=== PATIENT | female | born 1940 | race Hispanic/Latino ===

== ENCOUNTER 2019-06-19 05:51 | Observation (INO) | payer OTHER ==
[2019-06-14 11:19] VITALS: BP 192/82
[2019-06-14 11:33] VITALS: BP 152/76
[2019-06-14 11:40] LABS: APPEARANCE,URINE Clear (CLEAR); BILIRUBIN,URINE Negative (NEGATIVE); COLOR,URINE Yellow (YELLOW); GLUCOSE, URINE (UA) Negative (NEGATIVE); KETONES,URINE Negative (NEGATIVE); LEUKOCYTE ESTERASE ,URINE Negative (NEGATIVE); NITRATE,URINE Negative (NEGATIVE); OCCULT BLOOD,URINE Trace (NEGATIVE); PH,URINE 6.5 (5.0-8.0); PROTEIN,URINE Negative (NEGATIVE); UROBILINOGEN,URINE 0.2 mg/dL (0.2-1.0)
[2019-06-14 11:40] LABS: BASOPHILS % (AUTO) 1.4 % (0.0-5.0); EOSINOPHILS % (AUTO) 4.1 % (0.0-8.0); HEMATOCRIT 37.8 % (36-48); LYMPHOCYTES % (AUTO) 20.1 % (21.0-51.0); MEAN CORPUSCULAR HEMOGLOBIN 32.2 pg (27.0-33.0); MEAN CORPUSCULAR HGB CONC 33.3 g/dL (32.0-36.0); MEAN CORPUSCULAR VOLUME 96.7 fL (79-99); MONOCYTES % (AUTO) 6.5 % (3.0-13.0); NEUTROPHILS % (AUTO) 67.7 % (40.0-77.0); PLATELET COUNT (AUTO) 265 K/uL (130-400); RED BLOOD CELL COUNT(AUTO) 3.91 MIL/uL (4.00-5.50); RED CELL DISTRIBUTION WIDTH 11.9 % (11.0-15.5); WHITE BLOOD COUNT (AUTO) 5.7 K/uL (4.8-10.8)
[2019-06-14 11:56] LABS: CREATININE 0.7 mg/dL (0.5-1.5); POTASSIUM 4.3 mmol/L (3.5-5.1)
[2019-06-14 12:00] LABS: INR 0.95 (0.85-1.15); PARTIAL THROMBOPLASTIN TIME 29.2 SEC (26.3-35.5)
[2019-06-14 12:08] LABS: BACTERIA,URINE None Seen /HPF (None Seen); RBC,URINE 0-1 /HPF (0-1); SQUAMOUS EPITHELIAL CELL,UR None Seen /HPF (0-2); WBC,URINE None Seen /HPF (0-1)
--- NOTE | 2019-06-18 15:43 | NUR ---
REPORTED ABNORMAL LABS TO DR. LUNA NA 129 AND OTHER ABNORMALS . NO NEW ORDERS AT THIS TIME. OK TO PROCEED.
[~2019-06-19] VITALS: Ht 143.5 cm; Wt 67.6 kg
[2019-06-19] VITALS (13 sets, daily range): BP systolic 98–188; BP diastolic 47–93
[~2019-06-19 05:51] MED LIST: ACET-2247 PO; ALEN70TA10 PO; ANASTROZOLE PO; BACL10TA PO; CALC-1205 PO; CEFU250T87 PO; FLUT15.845 NS; FLUT1AER IH; FURO20TA4 PO; GABA-531 PO; HYDR-4060 PO; LATA7.5D OP; LEVO5TAB13 PO; LEVOTHROXIN PO; LOSA50TA64 PO; MECL-183 PO; MONT10TA26 PO; MU-V1TAB28 PO; OMEP40CA13 PO; SODIUM CHLORIDE 0.9% 500ML 500 ML IV SCH
[2019-06-19] MEDS ORDERED: SODIUM CHLORIDE 0.9% 1000ML 1,000 ML IV ONE (07:30)
[2019-06-19] MEDS ORDERED: IOHEXOL 350 MG/ML 100ML INFUS..BTL IV ONE (07:36)
[2019-06-19] MEDS ORDERED: HEPARIN SODIUM 1000UNIT/ML 10ML VIAL ONE (07:36)
[2019-06-19] MEDS ORDERED: NITROGLYCERIN 2 MG/VIAL VIAL IV ONE (07:36)
[2019-06-19] MEDS ORDERED: IOHEXOL-350 50ML VIAL IV ONE (07:36)
[2019-06-19] MEDS ORDERED: LIDOCAINE HCL 2% 20ML ONE (07:37)
[2019-06-19] MEDS ORDERED: MIDAZOLAM HCL 1 MG/ML 2ML VIAL ONE (09:49)
[2019-06-19] MEDS ORDERED: FENTANYL CITRATE PF 50 MCG/1 ML 2ML VIAL ONE (09:49)
[2019-06-19] MEDS ORDERED: ATROPINE SULFATE 0.1 MG/ML 10 ML SYG IVP ONE (10:14)
--- NOTE | 2019-06-19 11:25 | NUR ---
PROCEDURE PT HERE FROM PROCEDURE. SITE TO RIGHT GROIN SOFT TO TOUCH. NO BLEEDING, SWELLING NOTED TO SITE. DENIES ANY PAIN, SOB. INSTRUCTED PT AND GRAND-DAUGHTER TO NOT MOVE RIGHT LEG. BOTH VERBALIZED UNDERSTANDING.
--- NOTE | 2019-06-19 12:05 | NUR ---
REPORT REPORT GIVEN TO Jaelyn VALDOVINOS RN. PT LYING IN BED. NO BLEEDING, OOZING NOTED TO SITE.
[2019-06-19] MEDS ORDERED: ACETAMINOPHEN 325 MG TAB PO PRN (13:30)
--- NOTE | 2019-06-19 14:51 | NUR ---
report given to paloma wilcox no concerns voiced
--- NOTE | 2019-06-19 15:30 | NUR ---
AMBULATION PT AMBULATING TO RESTROOM WITHOUT DIFFICULTY. DENIES ANY CHEST PAIN, SOB. SITE TO RIGHT GROIN SOFT TO TOUCH. HAD BM.
--- NOTE | 2019-06-19 15:40 | NUR ---
REPORT REPORT GIVEN TO CATE LAKHANI. PT DOING WELL.
--- NOTE | 2019-06-19 15:43 | NUR ---
XRAY PT TAKEN TO RADIOLOGY VIA WHEELCHAIR.
--- NOTE | 2019-06-19 16:00 | NUR ---
TRANSFERRED PT TRANSFERRED TO ROOM 221 VIA WHEELCHAIR. SITE SOFT TO TOUCH. NO BLEEDING, OOZING NOTED TO SITE.
--- NOTE | 2019-06-19 16:05 | NUR ---
DR. Cara GORDON, AT NURSE'S STATION, MADE AWARE BY Janina HANNAH, HS, PT. ON HER WAY FROM DAYPT. TO ROOM 221.
--- NOTE | 2019-06-19 16:20 | NUR ---
RECEIVED FROM DAYPT. VIA BED ACCOMPANIED BY STAFF. AAOX3, RESP.'S EVEN AND UNLABORED. CALL LIGHT WITHIN REACH. BED LOW, SIDE RAILS UP X3. FAMILY MEMBERS AT BEDSIDE.
--- NOTE | 2019-06-19 22:00 | NUR ---
MAHIN RICH NOTIFIED OF PT REQUEST TO TAKE HOME MEDS. STATED WOULD RESUME FOR THE AM. 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 DOSE OF 1250MG.
[2019-06-19 23:12] LABS: HEMATOCRIT 34.4 % (36-48); MEAN CORPUSCULAR HEMOGLOBIN 31.9 pg (27.0-33.0); MEAN CORPUSCULAR VOLUME 93.7 fL (79-99); PLATELET COUNT (AUTO) 235 K/uL (130-400); RED BLOOD CELL COUNT(AUTO) 3.67 MIL/uL (4.00-5.50); RED CELL DISTRIBUTION WIDTH 11.9 % (11.0-15.5); WHITE BLOOD COUNT (AUTO) 6.6 K/uL (4.8-10.8)
[2019-06-19 23:20] LABS: CREATININE 0.7 mg/dL (0.5-1.5); POTASSIUM 3.4 mmol/L (3.5-5.1)
[2019-06-19 23:23] LABS: MAGNESIUM 1.9 mg/dL (1.80-2.40)
[2019-06-19] MEDS ORDERED: ONDANSETRON HCL 4 MG/2 ML VIAL IVP PRN (23:45)
[2019-06-19] MEDS ORDERED: LACTULOSE 20 GM/30 ML UDCUP PO PRN (23:45)
[2019-06-20 00:05] VITALS: BP 118/63
[2019-06-20 04:08] VITALS: BP 122/54
[2019-06-20 05:35] LABS: HEMATOCRIT 35.2 % (36-48); MEAN CORPUSCULAR HEMOGLOBIN 32.2 pg (27.0-33.0); MEAN CORPUSCULAR HGB CONC 34.1 g/dL (32.0-36.0); MEAN CORPUSCULAR VOLUME 94.4 fL (79-99); PLATELET COUNT (AUTO) 240 K/uL (130-400); RED BLOOD CELL COUNT(AUTO) 3.73 MIL/uL (4.00-5.50); RED CELL DISTRIBUTION WIDTH 12.1 % (11.0-15.5); WHITE BLOOD COUNT (AUTO) 5.7 K/uL (4.8-10.8)
[2019-06-20 05:54] LABS: CREATININE 0.7 mg/dL (0.5-1.5); MAGNESIUM 2.1 mg/dL (1.80-2.40); PHOSPHORUS 3.9 mg/dL (2.5-4.9); POTASSIUM 3.3 mmol/L (3.5-5.1)
[2019-06-20] MEDS ORDERED: PHARMACY COMMUNICATION MISC SCH (06:00)
[2019-06-20 06:07] LABS: HEMOGLOBIN A1C 5.5 % (4.0-6.0)
[2019-06-20] MEDS ORDERED: LEVOTHYROXINE 112 MCG TABLET PO SCH (06:30)
--- NOTE | 2019-06-20 07:45 | NUR ---
ASSESSMENT PT IS AAOX3 DENIES CP DENIES SOB DENIES NV NO COMPLAINTS, SITTING UPRIGHT IN CHAIR. BREAHTING PATTERN IS EVEN AND UNALABORED, TELE PACK IS ON PATIENT. CALL LIGHT WITHIN REACH.
[2019-06-20 07:48] VITALS: BP 123/62
--- NOTE | 2019-06-20 08:15 | NUR ---
MEDICATION ADMINISTRATION / NO SCANNER VERIFIED PATIENTS FULL NAME, , ROOM NUMBER, ALLERGIES, AND ALL MEDS ADMINISTERED WITH PATIENT AND [employer] EMAR, ADMINISTER BUTTON USED TO CHART MEDS. NO SCANNER IS AVAILABLE ON MY COMPUTER AND NO OTHER COMPUTER WITH SCANNER IS AVAILABLE FOR ME TO USE, SEARCED ALL FLOORS. IT STAFF [employer] CALLED AT 8 AM TO REPORT THIS. CHAVO STATES THEY WILL WORK ON FINDING ME A VIABLE SCANNER/COMPUTER "SOON".
[2019-06-20] MEDS ORDERED: GABAPENTIN 300 MG CAPSULE PO SCH (09:00)
[2019-06-20] MEDS ORDERED: CETIRIZINE HCL 5 MG TABLET PO SCH (09:00)
[2019-06-20] MEDS ORDERED: MULTIVITAMIN WITH MINERALS TABLET PO SCH (09:00)
[2019-06-20] MEDS ORDERED: LOSARTAN 50 MG TABLET PO SCH (09:00)
[2019-06-20] MEDS ORDERED: FLUTICASONE PROPIONATE 50MCG/SPRAY 16 GM BOTTLE EN SCH (09:00)
[2019-06-20] MEDS ORDERED: PANTOPRAZOLE SODIUM 40 MG TABLET.DR PO SCH (09:00)
[2019-06-20] MEDS ORDERED: NON-FORMULARY MEDICATION 1 EACH (Alendronate Sodium 70 MG) PO SCH (09:00)
[2019-06-20] MEDS ORDERED: ANASTROZOLE 1 MG PO SCH (09:00)
[2019-06-20] MEDS ORDERED: CALCIUM 600 + VITAMIN D 400 TABLET PO SCH (09:00)
[2019-06-20] MEDS ORDERED: MONTELUKAST SODIUM 10 MG TAB PO SCH (09:00)
[2019-06-20] MEDS ORDERED: FUROSEMIDE 20 MG TABLET PO SCH (09:00)
[2019-06-20] MEDS ORDERED: BACLOFEN 10 MG TABLET PO SCH (09:00)
[2019-06-20] MEDS ORDERED: MECLIZINE HCL 12.5 MG TABLET PO SCH (09:00)
[2019-06-20 11:45] VITALS: BP 113/62
[2019-06-20] MEDS ORDERED: ALBUTEROL SULFATE 0.083% 2.5 MG/3 ML INH IH SCH (12:00)
[2019-06-20] MEDS ORDERED: POTASSIUM CHLORIDE 20 MEQ ERTAB PO SCH (12:00)
--- NOTE | 2019-06-20 12:39 | NUR ---
[id number] patient signed ELY Letter, I faxed ELY Letter to [id number] and placed in chart under consent tab.
--- NOTE | 2019-06-20 14:00 | NUR ---
MD ROUNDS DR GORDON ROUNDED, OK TO DC PT HOME.
--- NOTE | 2019-06-20 14:21 | NUR ---
DISCHARGE PATIENT AND FAMILY VERBALIZE DC INSTRUCTIONS UNDERSTANDING AGREE TO TAKE MEDS ORDERED AND AGREE TO FOLLOW UP WITH DR IVORY OUTPT. ALL QUESTIONS ANSWERED, PIV REMOVED CATH TIP INTACT TELE PACK REMOVED. ALL BELONGINGS TAKEN.
[2019-06-20] MEDS ORDERED: BUDESONIDE 0.5 MG/2 ML INH IH SCH (18:00)
[2019-06-20] MEDS ORDERED: LATANOPROST 2.5 ML DROPS OU SCH (21:00)
== END 2019-06-20 15:00 | disposition home or self-care (01) ==
LOC: DAH 05:51 → DAHIP 05:52 → DAH 05:52 → 2DH 16:19
PROVIDERS: ADMIT Internal Medicine; ATTEND Internal Medicine
DX: I35.0 Nonrheumatic aortic (valve) stenosis (principal); I10 Essential (primary) hypertension; E03.9 Hypothyroidism, unspecified; I47.2 Ventricular tachycardia; E66.9 Obesity, unspecified; J45.909 Unspecified asthma, uncomplicated; Z68.35 Body mass index [BMI] 35.0-35.9, adult; Z85.3 Personal history of malignant neoplasm of breast; Z90.13 Acquired absence of bilateral breasts and nipples; Z88.1 Allergy status to other antibiotic agents; Z88.8 Allergy status to other drugs, medicaments and biological substances; Z79.899 Other long term (current) drug therapy
CPT/HCPCS: 36415 ×3; 71045; 71046; 80048 ×3; 80061; 81001; 83036; 83735 ×2; 84100 ×2; 84443; 85025; 85027 ×2; 85610; 85730; 93005; 93456; 94640; 94664; A4215 ×2; A4216; A4221; A4222; A4223 ×3; A4606; A4663; C1760; C1769; C1894 ×3; G0378 ×20; J0461; J1644; J2250; J3010; J3490 ×2; J7030; Q9965; Q9967 ×2; 93460; 99156; 99157

== ENCOUNTER 2019-07-27 10:00 | Inpatient (IN) | payer OTHER ==
[~2019-07-27] VITALS: Ht 152.4 cm; Wt 71.2 kg
[~2019-07-27 10:00] MED LIST changes: -ALEN70TA10 PO; +ALEN70TA69 PO; -CEFU250T87 PO; -SODIUM CHLORIDE 0.9% 500ML 500 ML IV SCH
[2019-07-31 13:00] VITALS: BP 193/95
[2019-07-31 13:13] LABS: BASOPHILS % (AUTO) 1.5 % (0.0-5.0); EOSINOPHILS % (AUTO) 6.4 % (0.0-8.0); HEMATOCRIT 37.9 % (36-48); LYMPHOCYTES % (AUTO) 23.7 % (21.0-51.0); MEAN CORPUSCULAR HEMOGLOBIN 32.6 pg (27.0-33.0); MEAN CORPUSCULAR HGB CONC 33.2 g/dL (32.0-36.0); MEAN CORPUSCULAR VOLUME 98.2 fL (79-99); MONOCYTES % (AUTO) 6.6 % (3.0-13.0); NEUTROPHILS % (AUTO) 61.6 % (40.0-77.0); PLATELET COUNT (AUTO) 251 K/uL (130-400); RED BLOOD CELL COUNT(AUTO) 3.86 MIL/uL (4.00-5.50); RED CELL DISTRIBUTION WIDTH 12.5 % (11.0-15.5); WHITE BLOOD COUNT (AUTO) 5.3 K/uL (4.8-10.8)
[2019-07-31 13:20] VITALS: BP 162/81
[2019-07-31 13:22] LABS: HEMOGLOBIN A1C 5.6 % (4.0-6.0)
[2019-07-31 13:27] LABS: ALBUMIN 4.1 g/dL (3.5-5.0); BILIRUBIN,TOTAL 0.5 mg/dL (0.2-1.0); CREATININE 0.8 mg/dL (0.5-1.5); TOTAL PROTEIN, SERUM 7.9 g/dL (6.0-8.3)
[2019-07-31 13:29] LABS: INR 0.89 (0.85-1.15); PARTIAL THROMBOPLASTIN TIME 28.1 SEC (26.3-35.5); PROTHROMBIN TIME 9.7 SEC (9.6-11.6)
[2019-07-31] MEDS ORDERED: CLINDAMYCIN 900 MG/D5% WATER 50 ML IV PRN (18:45)
[2019-08-01] VITALS (20 sets, daily range): BP systolic 86–154; BP diastolic 43–79
[2019-08-01] MEDS ORDERED: NOREPINEPHRINE BITARTRATE 8 MG in DEXTROSE 5%-WATER 250 ML IV PRN (06:15)
[2019-08-01] MEDS ORDERED: AMINOCAPROIC ACID 15,000 MG in SODIUM CHLORIDE 0.9% 500ML 500 ML IV PRN (06:15)
[2019-08-01] MEDS ORDERED: EPINEPHRINE 10 MG in SODIUM CHLORIDE 0.9% 240 ML IV PRN (06:15)
[2019-08-01] MEDS ORDERED: OCTYL 2-CYANOACRYLATE 1 EACH TP ONE (06:29)
[2019-08-01] MEDS ORDERED: PAPAVERINE HCL 30 MG/ML 2ML VIAL ONE (06:29)
[2019-08-01] MEDS ORDERED: CEFAZOLIN SODIUM 1 GM VIAL ONE (06:29)
[2019-08-01] MEDS ORDERED: NITROGLYCERIN 50 MG/D5% WATER 1 BOT ONE (06:43)
[2019-08-01] MEDS ORDERED: SODIUM CHLORIDE 0.9% 1000ML 1,000 ML IV ONE (06:59)
[2019-08-01] MEDS: CEFUROXIME SODIUM 1.5 GM VIAL ONE ×2 (07:09→08:15)
[2019-08-01] MEDS ORDERED: ESMOLOL HCL 10 MG/ML 10 ML VIAL ONE (07:59)
[2019-08-01] MEDS ORDERED: MIDAZOLAM HCL 1 MG/ML 2ML VIAL ONE (08:00)
[2019-08-01] MEDS ORDERED: ROCURONIUM 10MG/1ML SYR 10 MG/ML ML ONE (08:00)
[2019-08-01] MEDS ORDERED: AMINOCAPROIC ACID 250 MG/ML 20 ML VIAL IV ONE (08:00)
[2019-08-01] MEDS ORDERED: PROTAMINE SULFATE 10 MG/ML 25ML VIAL IV ONE (08:00)
[2019-08-01] MEDS ORDERED: NOREPINEPHRINE BITARTRATE 1 MG/1 ML ML IV ONE (08:00)
[2019-08-01] MEDS ORDERED: LIDOCAINE PF 2% 5ML ABBOJECT ONE (08:00)
[2019-08-01] MEDS ORDERED: PROPOFOL 10 MG/ML 20ML VIAL IV ONE (08:00)
[2019-08-01] MEDS ORDERED: HEPARIN SODIUM 1000UNIT/ML 10ML VIAL ONE (08:00)
[2019-08-01] MEDS ORDERED: FENTANYL CITRATE PF 50 MCG/1 ML 20ML VIAL IJ ONE (08:00)
[2019-08-01] MEDS ORDERED: EPINEPHRINE 1 MG/ML AMPULE ONE (08:00)
[2019-08-01] MEDS ORDERED: KETAMINE HCL 50MG/ML 10ML VIAL IJ ONE (08:03)
[2019-08-01] MEDS ORDERED: DELNIDO FORMULA 1 BAG IV ONE (08:05)
[2019-08-01 09:19] LABS: ABG BASE EXCESS -3.9 mmol/L (-2.0-3.0); ABG HCO3 19.4 mmol/L (21.0-28.0); ABG OXYGEN SATURATION 99.5 % (95.0-99.0); ABG PCO2 30 mmHg (32-45)
[2019-08-01] MEDS ORDERED: SODIUM CHLORIDE 0.9% 500ML 500 ML IV SCH (09:40)
[2019-08-01] MEDS ORDERED: PROPOFOL 1000 MG/100 ML 100 ML IV PRN (09:45)
[2019-08-01] MEDS ORDERED: NOREPINEPHRINE 4MG/NS 250ML 250 ML IV PRN (09:45)
[2019-08-01] MEDS ORDERED: ONDANSETRON HCL 4 MG/2 ML VIAL IV PRN (09:45)
[2019-08-01] MEDS ORDERED: AMINOCAPROIC ACID 15,000 MG in SODIUM CHLORIDE 0.9% 250 ML IV SCH (09:45)
[2019-08-01] MEDS ORDERED: DEXTROSE 50%-WATER 50 ML DISP.SYRIN IV PRN (09:45)
[2019-08-01] MEDS ORDERED: MAGNESIUM 2GM PREMIX 50ML 50 ML IV PRN (09:45)
[2019-08-01] MEDS ORDERED: ACETAMINOPHEN 650 MG SUPPOSITORY RC PRN (09:45)
[2019-08-01] MEDS ORDERED: MORPHINE SULFATE 2 MG/ML 1ML SYG IV PRN (09:45)
[2019-08-01] MEDS ORDERED: ALBUMIN (HUMAN) 5% 250 ML IV PRN (09:45)
[2019-08-01] MEDS ORDERED: SODIUM CHLORIDE 0.9% 10 ML VIAL IVP PRN (09:45)
[2019-08-01] MEDS ORDERED: EPINEPHRINE 10 MG in DEXTROSE 5%-WATER 250 ML IV PRN (09:45)
[2019-08-01] MEDS ORDERED: MORPHINE SULFATE 4 MG/1ML SYG IV PRN (09:45)
[2019-08-01] MEDS ORDERED: ACETAMINOPHEN 325 MG TAB PO PRN ×2 (09:45)
[2019-08-01] MEDS ORDERED: INSULIN REGULAR, HUMAN 3ML 100 UNIT in SODIUM CHLORIDE 0.9% 99 ML IV SCH ×2 (09:45)
[2019-08-01] MEDS ORDERED: SODIUM CHLORIDE 0.9% 1000ML 1,000 ML IV SCH (09:45)
[2019-08-01] MEDS ORDERED: POTASSIUM PHOS 15 mMOL+NS250ML 250 ML IV PRN (09:45)
[2019-08-01] MEDS ORDERED: NITROGLYCERIN 50 MG/D5% WATER 250 BOT IV SCH (09:45)
[2019-08-01] MEDS ORDERED: GLUCAGON 1MG KIT 1 MG ML IM PRN (09:45)
[2019-08-01] MEDS ORDERED: SODIUM CHLORIDE 0.9% 250 ML IV PRN (09:45)
[2019-08-01] MEDS ORDERED: ROCURONIUM BROMIDE 10MG/1ML 5ML VL ONE (10:25)
[2019-08-01 10:44] LABS: ABG BASE EXCESS -2.3 mmol/L (-2.0-3.0); ABG HCO3 20.6 mmol/L (21.0-28.0); ABG OXYGEN SATURATION 98.8 % (95.0-99.0); ABG PCO2 28 mmHg (32-45)
[2019-08-01] MEDS ORDERED: AMIODARONE HCL 50 MG/ML 3 ML VIAL ONE (10:59)
[2019-08-01] MEDS ORDERED: GLYCOPYRROLATE 1 MG/5 ML SYRINGE ONE (11:02)
[2019-08-01 11:35] LABS: ABG BASE EXCESS -2.4 mmol/L (-2.0-3.0); ABG OXYGEN SATURATION 98.8 % (95.0-99.0); ABG PCO2 31 mmHg (32-45)
--- NOTE | 2019-08-01 11:55 | NUR ---
ARRIVES FROM O.R. SUITE TO PACU 18. LEVOPHED AT 1MCG/KG/MIN AND EPI AT 0.1 MCG/KG/MIN. AMIKAR AT 50ML/HR. ET TUBE IN PLACE. OGT,JEFFREY CATH, FEMORAL A-LINE BEING TRANSDUCED FOR BP MONITORING, LEFT RADIAL A-LINE INTACT.
[2019-08-01 12:19] LABS: ABG BASE EXCESS -4.2 mmol/L (-2.0-3.0); ABG HCO3 20.6 mmol/L (21.0-28.0); ABG OXYGEN SATURATION 98.3 % (95.0-99.0); ABG PCO2 36 mmHg (32-45)
[2019-08-01] MEDS: SODIUM BICARB 50MEQ 50ML VIAL IV PRN ×3 (12:40→16:09)
[2019-08-01 12:44] LABS: HEMATOCRIT 31.6 % (36-48); MEAN CORPUSCULAR HEMOGLOBIN 32.9 pg (27.0-33.0); MEAN CORPUSCULAR HGB CONC 33.9 g/dL (32.0-36.0); MEAN CORPUSCULAR VOLUME 97.2 fL (79-99); PLATELET COUNT (AUTO) 177 K/uL (130-400); RED BLOOD CELL COUNT(AUTO) 3.25 MIL/uL (4.00-5.50); RED CELL DISTRIBUTION WIDTH 12.5 % (11.0-15.5); WHITE BLOOD COUNT (AUTO) 20.5 K/uL (4.8-10.8)
[2019-08-01 13:01] LABS: CREATININE 0.9 mg/dL (0.5-1.5); INR 1.14 (0.85-1.15); MAGNESIUM 3.1 mg/dL (1.80-2.40); PARTIAL THROMBOPLASTIN TIME 25.4 SEC (26.3-35.5); PHOSPHORUS 3.8 mg/dL (2.5-4.9); POTASSIUM 3.3 mmol/L (3.5-5.1); PROTHROMBIN TIME 12.3 SEC (9.6-11.6)
[2019-08-01] MEDS: POTASSIUM CHLORIDE 20MEQ/100ML 100 ML IV PRN ×4 (13:04→19:18)
--- NOTE | 2019-08-01 15:34 | NUR ---
PT SLOWLY BEGINNING TO WAKE UP- FOLLOWS COMMANDS- NODS YES AND NO-DROWSY
[2019-08-01 16:02] LABS: ABG BASE EXCESS -1.1 mmol/L (-2.0-3.0); ABG HCO3 22.9 mmol/L (21.0-28.0); ABG OXYGEN SATURATION 98.2 % (95.0-99.0); ABG PCO2 36 mmHg (32-45)
--- NOTE | 2019-08-01 16:31 | NUR ---
VENT RATE DECREASED TO 10 BY R.T...NO DISTRESS AND STABLE
--- NOTE | 2019-08-01 17:20 | NUR ---
VENT RATE DECREASED TO 8
[2019-08-01] MEDS: CLINDAMYCIN 900 MG/D5% WATER 50 ML IV SCH (17:37)
--- NOTE | 2019-08-01 17:45 | NUR ---
VENT RATE TO 6- MONITOR
[2019-08-01 18:22] LABS: ABG BASE EXCESS 1.7 mmol/L (-2.0-3.0); ABG HCO3 25.7 mmol/L (21.0-28.0); ABG OXYGEN SATURATION 97.5 % (95.0-99.0); ABG PCO2 38 mmHg (32-45)
[2019-08-01] MEDS: CALCIUM GLUCONATE 1 GM in SODIUM CHLORIDE 0.9% 50 ML IV PRN (19:17)
[2019-08-01] MEDS ORDERED: PHARMACY COMMUNICATION MISC SCH (19:30)
[2019-08-01] MEDS: LATANOPROST 2.5 ML DROPS OU SCH (19:36)
[2019-08-01] MEDS: ATORVASTATIN CALCIUM 40 MG TABLET PO SCH (19:36)
[2019-08-01 19:41] LABS: ABG BASE EXCESS 2.7 mmol/L (-2.0-3.0); ABG HCO3 27.1 mmol/L (21.0-28.0); ABG OXYGEN SATURATION 98.1 % (95.0-99.0); ABG PCO2 41 mmHg (32-45)
[2019-08-01] MEDS: FAMOTIDINE/PF 20 MG/2 ML VIAL IV SCH (20:37)
[2019-08-01] MEDS: MONTELUKAST SODIUM 10 MG TAB PO SCH (20:57)
[2019-08-01] MEDS ORDERED: FLUTICASONE PROPIONATE 50MCG/SPRAY 16 GM BOTTLE EN PRN (21:00)
[2019-08-01 21:13] LABS: ABG BASE EXCESS 2.1 mmol/L (-2.0-3.0); ABG HCO3 26.3 mmol/L (21.0-28.0); ABG OXYGEN SATURATION 98.1 % (95.0-99.0); ABG PCO2 39 mmHg (32-45)
--- NOTE | 2019-08-01 21:20 | NUR ---
EXTUBATION PT TOLERATED WEANING WELL WITH GOOD HAND RESIDENTIAL AIR SEALING TECHNICIAN AND ABLE TO LIFT HEAD AND HOLD. ABG WITHIN PARAMETERS ABLE TO ACHIEVE -29 ON NIF AND 740 ON VC. PT EXTUBATED AND PLACED ON 40% CAFM SHE WAS ENCOURAGED TO TAKE SLOW DEEP BREATHS. WILL CONTINUE TO MONITOR.
[2019-08-01 22:43] LABS: ABG BASE EXCESS 1.8 mmol/L (-2.0-3.0); ABG HCO3 27.1 mmol/L (21.0-28.0); ABG OXYGEN SATURATION 98.3 % (95.0-99.0); ABG PCO2 45 mmHg (32-45)
[2019-08-01] MEDS ORDERED: ALBUMIN (HUMAN) 5% 250 ML IV ONE (23:35)
[2019-08-02] VITALS (23 sets, daily range): BP systolic 103–157; BP diastolic 39–66
[2019-08-02] MEDS: CLINDAMYCIN 900 MG/D5% WATER 50 ML IV SCH ×2 (02:02→10:06)
[2019-08-02 04:06] LABS: ABG HCO3 28.7 mmol/L (21.0-28.0); ABG PCO2 43 mmHg (32-45)
[2019-08-02 04:21] LABS: HEMATOCRIT 28.8 % (36-48); MEAN CORPUSCULAR HEMOGLOBIN 32.6 pg (27.0-33.0); MEAN CORPUSCULAR HGB CONC 32.6 g/dL (32.0-36.0); PLATELET COUNT (AUTO) 74 K/uL (130-400); RED BLOOD CELL COUNT(AUTO) 2.88 MIL/uL (4.00-5.50); RED CELL DISTRIBUTION WIDTH 13.4 % (11.0-15.5); WHITE BLOOD COUNT (AUTO) 13.4 K/uL (4.8-10.8)
[2019-08-02 04:39] LABS: INR 1.01 (0.85-1.15); PARTIAL THROMBOPLASTIN TIME 27.8 SEC (26.3-35.5); PROTHROMBIN TIME 10.9 SEC (9.6-11.6)
[2019-08-02 04:51] LABS: PHOSPHORUS 3.2 mg/dL (2.5-4.9); POTASSIUM 3.8 mmol/L (3.5-5.1)
[2019-08-02] MEDS: POTASSIUM CHLORIDE 20MEQ/100ML 100 ML IV PRN (05:02)
[2019-08-02] MEDS: LEVOTHYROXINE 112 MCG TABLET PO SCH (05:15)
[2019-08-02] MEDS: TRAMADOL HCL 50 MG TABLET PO PRN ×2 (05:36→12:45)
[2019-08-02] MEDS: CALCIUM GLUCONATE 1 GM in SODIUM CHLORIDE 0.9% 50 ML IV PRN (05:48)
[2019-08-02] MEDS: ANASTROZOLE 1 MG PO SCH (09:00)
[2019-08-02] MEDS ORDERED: ASPIRIN 325MG EC TAB 325 MG TABLET.DR PO SCH (09:00)
[2019-08-02] MEDS ORDERED: BREO ELLIPTA NASAL PRN (09:00)
[2019-08-02] MEDS: FAMOTIDINE/PF 20 MG/2 ML VIAL IV SCH ×2 (09:01→20:53)
[2019-08-02] MEDS: FUROSEMIDE 10 MG/ML 2ML VIAL IV SCH ×2 (09:02→20:54)
--- NOTE | 2019-08-02 10:03 | NUR ---
DR CABALLERO NOTIFIED OF PLATELET COUNT 74..DECREASED DOSE OF ASPIRIN TO 81MG TEDS/SCD APPLIED
[2019-08-02] MEDS: ASPIRIN 81 MG EC TAB PO SCH (10:07)
--- NOTE | 2019-08-02 10:30 | NUR ---
Patient is not ready for Physical Therapy Evaluation as per CATE Parkinson Patient is on A-Femoral line. Addendum: 08/02/19 at 1344 by BUD BE, PT PT Amended: Links added.
--- NOTE | 2019-08-02 11:43 | NUR ---
PT HAS BEEN TRANSFERRED TO DAYPATIENT ICU ROOM C. NO CHANGES. DR CABALLERO MADE ROUNDS AND GAVE ORDERS
--- NOTE | 2019-08-02 13:20 | NUR ---
LEFT FEMORAL A-LINE REMOVED INTACT- NO HEMATOMA . DRESSING APPLIED. GOOD PEDAL PULSES
--- NOTE | 2019-08-02 14:18 | NUR ---
INITIAL SW spoke with patient's son, Suzy Logan Jr, [phone]. Patient lives with spouse. No home health but has PHC with [facility] X 21 hours a week. DME: [facility], [facility]. Patient was able to complete ADL's independently and drove prior to coming into hospital as per son. PCP is Dr. Elias Woody. Pharmacy is [facility]. DCP is home if possible as per son. Addendum: 08/02/19 at 1420 by GIOVANY DOUGLAS SS Amended: Links added.
--- NOTE | 2019-08-02 14:31 | NUR ---
HAND OFF REPORT GIVEN TO HARRISON ESPOSITO
[2019-08-02 14:34] LABS: CREATININE 0.9 mg/dL (0.5-1.5); POTASSIUM 4.3 mmol/L (3.5-5.1)
[2019-08-02] MEDS: INSULIN HUMULIN R 100 UNIT/ML 3ML SQ SCH ×2 (16:30→20:55)
[2019-08-02] MEDS: MONTELUKAST SODIUM 10 MG TAB PO SCH (20:54)
[2019-08-02] MEDS: LATANOPROST 2.5 ML DROPS OU SCH (20:54)
[2019-08-02] MEDS: ATORVASTATIN CALCIUM 40 MG TABLET PO SCH (20:54)
[2019-08-03] VITALS (19 sets, daily range): BP systolic 103–136; BP diastolic 39–70
[2019-08-03] MEDS: TRAMADOL HCL 50 MG TABLET PO PRN ×2 (00:13→10:59)
[2019-08-03 03:54] LABS: HEMATOCRIT 26.3 % (36-48); MEAN CORPUSCULAR HEMOGLOBIN 33.1 pg (27.0-33.0); MEAN CORPUSCULAR HGB CONC 31.2 g/dL (32.0-36.0); PLATELET COUNT (AUTO) 31 K/uL (130-400); RED BLOOD CELL COUNT(AUTO) 2.48 MIL/uL (4.00-5.50); RED CELL DISTRIBUTION WIDTH 14.2 % (11.0-15.5); WHITE BLOOD COUNT (AUTO) 21.6 K/uL (4.8-10.8)
[2019-08-03 04:04] LABS: CREATININE 0.8 mg/dL (0.5-1.5); POTASSIUM 4.2 mmol/L (3.5-5.1)
[2019-08-03 04:43] LABS: PLATELET MORPHOLOGY COMMENT MARKED DECREASE
[2019-08-03] MEDS: INSULIN HUMULIN R 100 UNIT/ML 3ML SQ SCH ×4 (06:19→21:00)
[2019-08-03] MEDS: LEVOTHYROXINE 112 MCG TABLET PO SCH (06:51)
[2019-08-03 07:23] LABS: BASOPHILS % (AUTO) 0.3 % (0.0-5.0); EOSINOPHILS % (AUTO) 0.5 % (0.0-8.0); HEMATOCRIT 27.7 % (36-48); LYMPHOCYTES % (AUTO) 6.1 % (21.0-51.0); MEAN CORPUSCULAR HEMOGLOBIN 33.8 pg (27.0-33.0); MEAN CORPUSCULAR HGB CONC 31.8 g/dL (32.0-36.0); MEAN CORPUSCULAR VOLUME 106.5 fL (79-99); MONOCYTES % (AUTO) 6.3 % (3.0-13.0); NEUTROPHILS % (AUTO) 86.2 % (40.0-77.0); PLATELET COUNT (AUTO) 27 K/uL (130-400); RED CELL DISTRIBUTION WIDTH 14.3 % (11.0-15.5); WHITE BLOOD COUNT (AUTO) 21.1 K/uL (4.8-10.8)
[2019-08-03] MEDS: ASPIRIN 81 MG EC TAB PO SCH (08:17)
[2019-08-03] MEDS: FUROSEMIDE 20 MG TABLET PO SCH ×2 (08:17→17:16)
[2019-08-03] MEDS: FAMOTIDINE/PF 20 MG/2 ML VIAL IV SCH ×2 (08:17→21:03)
[2019-08-03] MEDS: METOPROLOL TARTRATE 25 MG TAB PO SCH ×2 (09:00→21:03)
[2019-08-03] MEDS: ANASTROZOLE 1 MG PO SCH (09:00)
[2019-08-03 17:05] LABS: HEMATOCRIT 26.1 % (36-48); MEAN CORPUSCULAR HEMOGLOBIN 32.9 pg (27.0-33.0); MEAN CORPUSCULAR HGB CONC 31.4 g/dL (32.0-36.0); MEAN CORPUSCULAR VOLUME 104.8 fL (79-99); NUCLEATED RED BLOOD CELLS 0.1 % (0.0-0.19); PLATELET COUNT (AUTO) 21 K/uL (130-400); RED BLOOD CELL COUNT(AUTO) 2.49 MIL/uL (4.00-5.50); RED CELL DISTRIBUTION WIDTH 14.1 % (11.0-15.5); WHITE BLOOD COUNT (AUTO) 18.1 K/uL (4.8-10.8)
[2019-08-03 17:31] LABS: BAND NEUTROPHILS % (MANUAL) 5 % (0-2); LYMPHOCYTES % (MANUAL) 10 % (22-44); MAN.DIFF COMMENT-IMPRESSION MANUAL DIFFERENTIAL; MONOCYTES % (MANUAL) 2 % (2-9); PLATELET MORPHOLOGY COMMENT MARKED DECREASE; SEGMENTED NEUTROPHILS % 83 % (40-70)
[2019-08-03] MEDS: LATANOPROST 2.5 ML DROPS OU SCH (21:02)
[2019-08-03] MEDS: ATORVASTATIN CALCIUM 40 MG TABLET PO SCH (21:03)
[2019-08-03] MEDS: MONTELUKAST SODIUM 10 MG TAB PO SCH (21:03)
[2019-08-04] VITALS (7 sets, daily range): BP systolic 95–161; BP diastolic 51–69
[2019-08-04 03:39] LABS: HEMATOCRIT 25.5 % (36-48); MEAN CORPUSCULAR HEMOGLOBIN 33.6 pg (27.0-33.0); MEAN CORPUSCULAR HGB CONC 32.2 g/dL (32.0-36.0); MEAN CORPUSCULAR VOLUME 104.5 fL (79-99); NUCLEATED RED BLOOD CELLS 0.2 % (0.0-0.19); PLATELET COUNT (AUTO) 22 K/uL (130-400); RED BLOOD CELL COUNT(AUTO) 2.44 MIL/uL (4.00-5.50); WHITE BLOOD COUNT (AUTO) 16.1 K/uL (4.8-10.8)
[2019-08-04 03:49] LABS: CREATININE 0.9 mg/dL (0.5-1.5)
[2019-08-04 05:17] LABS: BAND NEUTROPHILS % (MANUAL) 4 % (0-2); EOSINOPHILS % (MANUAL) 1 % (1-6); LYMPHOCYTES % (MANUAL) 9 % (22-44); MAN.DIFF COMMENT-IMPRESSION MANUAL DIFFERENTIAL; MONOCYTES % (MANUAL) 1 % (2-9); PLATELET MORPHOLOGY COMMENT MARKED DECREASE; SEGMENTED NEUTROPHILS % 85 % (40-70)
[2019-08-04] MEDS: INSULIN HUMULIN R 100 UNIT/ML 3ML SQ SCH ×4 (05:31→21:00)
[2019-08-04] MEDS: LEVOTHYROXINE 112 MCG TABLET PO SCH (06:36)
[2019-08-04] MEDS: FAMOTIDINE/PF 20 MG/2 ML VIAL IV SCH (09:00)
[2019-08-04] MEDS: ANASTROZOLE 1 MG PO SCH (09:00)
[2019-08-04] MEDS: ENOXAPARIN SODIUM 30 MG/0.3 ML SQ SCH (09:00)
[2019-08-04] MEDS: ASPIRIN 81 MG EC TAB PO SCH (09:00)
[2019-08-04] MEDS: METOPROLOL TARTRATE 25 MG TAB PO SCH ×2 (12:37→20:44)
[2019-08-04] MEDS: MONTELUKAST SODIUM 10 MG TAB PO SCH (20:43)
[2019-08-04] MEDS: ATORVASTATIN CALCIUM 40 MG TABLET PO SCH (20:43)
[2019-08-04] MEDS: LATANOPROST 2.5 ML DROPS OU SCH (20:44)
[2019-08-04] MEDS: TRAMADOL HCL 50 MG TABLET PO PRN (23:34)
[2019-08-05 03:44] VITALS: BP 136/83
[2019-08-05 04:25] LABS: HEMATOCRIT 25.7 % (36-48); MEAN CORPUSCULAR HEMOGLOBIN 32.8 pg (27.0-33.0); MEAN CORPUSCULAR HGB CONC 32.3 g/dL (32.0-36.0); MEAN CORPUSCULAR VOLUME 101.6 fL (79-99); NUCLEATED RED BLOOD CELLS 0.4 % (0.0-0.19); PLATELET COUNT (AUTO) 17 K/uL (130-400); RED BLOOD CELL COUNT(AUTO) 2.53 MIL/uL (4.00-5.50); RED CELL DISTRIBUTION WIDTH 13.6 % (11.0-15.5); WHITE BLOOD COUNT (AUTO) 12.8 K/uL (4.8-10.8)
[2019-08-05 04:44] LABS: CREATININE 0.8 mg/dL (0.5-1.5); POTASSIUM 3.8 mmol/L (3.5-5.1)
[2019-08-05] MEDS: LEVOTHYROXINE 112 MCG TABLET PO SCH (05:42)
[2019-08-05] MEDS: INSULIN HUMULIN R 100 UNIT/ML 3ML SQ SCH ×4 (05:45→21:00)
[2019-08-05 07:44] VITALS: BP 114/55
[2019-08-05] MEDS: FUROSEMIDE 20 MG TABLET PO SCH (08:13)
[2019-08-05] MEDS: METOPROLOL TARTRATE 25 MG TAB PO SCH ×2 (08:14→21:09)
[2019-08-05] MEDS: ENOXAPARIN SODIUM 30 MG/0.3 ML SQ SCH (08:18)
[2019-08-05] MEDS: ANASTROZOLE 1 MG PO SCH (08:20)
[2019-08-05 11:06] VITALS: BP 125/62
[2019-08-05 16:23] VITALS: BP 129/64
--- NOTE | 2019-08-05 16:50 | NUR ---
cm note call received from son Suzy Logan, who states was told pt needed rehab, and he is requesting for pt to go [facility]. states pt's other son, works there. and would prefer that facility, choice letter obtained and also spoke to pt and pt is in agreement.
[2019-08-05 20:40] VITALS: BP 144/58
[2019-08-05] MEDS: ATORVASTATIN CALCIUM 40 MG TABLET PO SCH (21:09)
[2019-08-05] MEDS: MONTELUKAST SODIUM 10 MG TAB PO SCH (21:09)
[2019-08-05] MEDS: LATANOPROST 2.5 ML DROPS OU SCH (21:17)
[2019-08-05 23:51] VITALS: BP 112/52
[2019-08-06 03:59] VITALS: BP 138/61
[2019-08-06] MEDS: INSULIN HUMULIN R 100 UNIT/ML 3ML SQ SCH ×4 (06:06→20:58)
[2019-08-06] MEDS: LEVOTHYROXINE 112 MCG TABLET PO SCH (06:07)
[2019-08-06] MEDS: TRAMADOL HCL 50 MG TABLET PO PRN ×2 (06:12→20:11)
[2019-08-06 07:56] VITALS: BP 123/56
[2019-08-06] MEDS: FUROSEMIDE 20 MG TABLET PO SCH (08:27)
[2019-08-06] MEDS: METOPROLOL TARTRATE 25 MG TAB PO SCH ×2 (08:28→20:07)
[2019-08-06] MEDS: ENOXAPARIN SODIUM 30 MG/0.3 ML SQ SCH (08:28)
[2019-08-06] MEDS: ANASTROZOLE 1 MG PO SCH (09:00)
[2019-08-06 12:00] VITALS: BP 115/54
--- NOTE | 2019-08-06 14:03 | NUR ---
uPdates sent to [facility] form and face sheet advised son of same Addendum: 08/06/19 at 1404 by PARISH BEAVERS RN CM Amended: Links added.
[2019-08-06 16:00] VITALS: BP 134/109
[2019-08-06 19:35] VITALS: BP_SYST 124; BP_DIAS 5; BP_DIAS 55
[2019-08-06] MEDS: LATANOPROST 2.5 ML DROPS OU SCH (20:07)
[2019-08-06] MEDS: ATORVASTATIN CALCIUM 40 MG TABLET PO SCH (20:07)
[2019-08-06] MEDS: MONTELUKAST SODIUM 10 MG TAB PO SCH (20:07)
--- NOTE | 2019-08-06 21:00 | NUR ---
PT C/O PAIN TO HANDS, STATED HAS ARTHRITIS. PT GIVEN TRAMADOL PRN. NO DISTRESS NOTED. PT ABLE TO STATE CONCERNS. NOT CONFUSED AT THE MOMENT, AA03. PERRLA. DOES REQUIRE ASSISTANCE TO AMBULATE TO BEDSIDE COMMODE.
[2019-08-06 23:25] VITALS: BP 119/59
[2019-08-07 04:00] VITALS: BP 111/63
[2019-08-07 05:55] LABS: HEMATOCRIT 24.1 % (36-48); MEAN CORPUSCULAR HEMOGLOBIN 32.9 pg (27.0-33.0); MEAN CORPUSCULAR HGB CONC 32.8 g/dL (32.0-36.0); MEAN CORPUSCULAR VOLUME 100.4 fL (79-99); NUCLEATED RED BLOOD CELLS 0.5 % (0.0-0.19); PLATELET COUNT (AUTO) 23 K/uL (130-400); RED CELL DISTRIBUTION WIDTH 13.2 % (11.0-15.5)
[2019-08-07] MEDS: INSULIN HUMULIN R 100 UNIT/ML 3ML SQ SCH ×3 (05:59→16:30)
[2019-08-07] MEDS: LEVOTHYROXINE 112 MCG TABLET PO SCH (06:06)
[2019-08-07 06:37] LABS: CREATININE 0.8 mg/dL (0.5-1.5)
[2019-08-07] MEDS: ANASTROZOLE 1 MG PO SCH (07:57)
[2019-08-07 08:00] VITALS: BP_SYST 109; BP_SYST 120; BP_DIAS 44; BP_DIAS 58
[2019-08-07] MEDS: POTASSIUM CHLORIDE 20MEQ/100ML 100 ML IV PRN (08:14)
[2019-08-07] MEDS: FUROSEMIDE 20 MG TABLET PO SCH (08:17)
[2019-08-07] MEDS: METOPROLOL TARTRATE 25 MG TAB PO SCH (08:18)
[2019-08-07 11:00] VITALS: BP_SYST 110; BP_SYST 122; BP_DIAS 40; BP_DIAS 57
[2019-08-07 16:00] VITALS: BP 157/60
--- NOTE | 2019-08-07 16:28 | NUR ---
Nutrition Intervention: Nutrition screen based on LOS x 6 days. 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 Pt. on Heart Healthy CVR Soft [place] diet, Chocolate Ensure TID. Pt. reports eating 25-50% of her meals and 75-100% of Ensure supp. Labs reviewed(K 3.0, BG 125, Alb 4.1). SR-15, elastic. LBM: 08/04/2019. BMI: 30.7, obesity Grade 1. Pt. educated on CABG diet and provided with education material. Pt. verbalized understanding. Recommendations: 1) Rec. D/C CVR diet restriction. 2) Continue Ensure supp. 3) CABG diet education given to patient. 4) Continue to monitor pt's nutritional status. 5) Consult RD as nutrition concerns arise. Addendum: 08/07/19 at [address] Amended: Links added.
--- NOTE | 2019-08-07 20:15 | NUR ---
EMS picked up by patient. IV removed, tele pack removed, ALL Patient belongings in bags sent with patient. Paperwork sent with EMS
== END 2019-08-07 20:00 | DRG 219 ==
LOC: EDSTATUS 10:00 → DAHIP 08-01 05:40 → PAH.CVR 08-01 12:01 → DAHIP 08-02 11:50 → 4BH 08-04 05:53
PROVIDERS: ADMIT Thoracic Surgery (Cardiothoracic Vascular Surgery); ATTEND Thoracic Surgery (Cardiothoracic Vascular Surgery)
PROC: 021009W Bypass Coronary Artery, One Artery from Aorta with Autologous Venous Tissue, Open Approach (ICD-10-PCS; 2019-08-01)
PROC: 06BQ4ZZ Excision of Left Saphenous Vein, Percutaneous Endoscopic Approach (ICD-10-PCS; 2019-08-01)
PROC: 5A1221Z Performance of Cardiac Output, Continuous (ICD-10-PCS; 2019-08-01)
PROC: 30233R1 Transfusion of Nonautologous Platelets into Peripheral Vein, Percutaneous Approach (ICD-10-PCS; 2019-08-01)
PROC: 02HV33Z Insertion of Infusion Device into Superior Vena Cava, Percutaneous Approach (ICD-10-PCS; 2019-08-01)
PROC: 02100Z9 Bypass Coronary Artery, One Artery from Left Internal Mammary, Open Approach (ICD-10-PCS; principal; 2019-08-01 08:01)
PROC: X2RF032 Replacement of Aortic Valve using Zooplastic Tissue, Rapid Deployment Technique, Open Approach, New Technology Group 2 (ICD-10-PCS; 2019-08-01 08:01)
DX: I25.10 Atherosclerotic heart disease of native coronary artery without angina pectoris (principal); I50.33 Acute on chronic diastolic (congestive) heart failure; J98.11 Atelectasis; I35.0 Nonrheumatic aortic (valve) stenosis; C50.919 Malignant neoplasm of unspecified site of unspecified female breast; J45.909 Unspecified asthma, uncomplicated; D69.59 Other secondary thrombocytopenia; E03.9 Hypothyroidism, unspecified; E78.00 Pure hypercholesterolemia, unspecified; E87.6 Hypokalemia; I11.0 Hypertensive heart disease with heart failure; Z79.899 Other long term (current) drug therapy; Z90.13 Acquired absence of bilateral breasts and nipples; Z95.1 Presence of aortocoronary bypass graft; Z95.3 Presence of xenogenic heart valve
CPT/HCPCS: 36415; 71045; 71046; 80048; 80053; 82330; 82435; 82803; 82947; 82948; 83036; 83605; 83735; 84100; 84132; 84295; 85018; 85025; 85027; 85347; 85610; 85730; 86850; 86900; 86901; 86922; 88305; 88311; 93005; 93313; 93318; 93880; 94002; 94010; 94150; 97039; A4344; A4357; A7048; G0378; J0171; J0282; J0610; J0690; J0697; J1644; J1650; J1815; J1940; J2001; J2250; J2440; J2704; J2720; J3010; J3480; J3490; J7030; J7040; J7050; J7060; J7120; P9034; P9045